=== PATIENT | male | born 1950 | race Caucasian/White ===

== ENCOUNTER 2018-06-02 13:10 | Emergency (ER) | payer MEDICARE, OTHER ==
[~2018-06-02 13:10] MED LIST: Sodium Chloride Irrig Solution 250 ML BOT ONE
[2018-06-02] MEDS ORDERED: Lidocaine 1% 20 ML MDV ONE (13:26)
[2018-06-02] MEDS ORDERED: Triple Antibiotic Oint 1 GM Packet ONE (13:26)
== END 2018-06-02 13:45 | disposition home or self-care (01) ==
LOC: MADERS 13:10
DX: S61.411A Laceration without foreign body of right hand, initial encounter (principal); F43.10 Post-traumatic stress disorder, unspecified; F17.210 Nicotine dependence, cigarettes, uncomplicated; Z79.899 Other long term (current) drug therapy; W26.0XXA Contact with knife, initial encounter
CPT/HCPCS: 12001; J2001

== ENCOUNTER 2019-05-25 16:59 | Emergency (ER) | payer MEDICARE, OTHER ==
[2019-05-25] MEDS ORDERED: Lidocaine 1% 20 ML MDV ONE (17:24)
== END 2019-05-25 17:55 | disposition home or self-care (01) ==
LOC: MADERS 16:59
DX: S61.213A Laceration without foreign body of left middle finger without damage to nail, initial encounter (principal); F43.10 Post-traumatic stress disorder, unspecified; F17.210 Nicotine dependence, cigarettes, uncomplicated; Z79.899 Other long term (current) drug therapy; Z79.82 Long term (current) use of aspirin; W23.0XXA Caught, crushed, jammed, or pinched between moving objects, initial encounter
CPT/HCPCS: 12001; J2001

== ENCOUNTER 2019-07-14 11:23 | Emergency (ER) | payer MEDICARE, OTHER ==
[2019-07-14] MEDS ORDERED: Lidocaine 1% 20 ML MDV ONE (12:32)
[2019-07-14] MEDS ORDERED: Bacitracin 1 PK ONE (13:24)
== END 2019-07-14 13:27 | disposition home or self-care (01) ==
LOC: MADERS 11:23
DX: S61.012A Laceration without foreign body of left thumb without damage to nail, initial encounter (principal); F43.10 Post-traumatic stress disorder, unspecified; F17.210 Nicotine dependence, cigarettes, uncomplicated; W26.0XXA Contact with knife, initial encounter; Y92.009 Unspecified place in unspecified non-institutional (private) residence as the place of occurrence of the external cause
CPT/HCPCS: 12001; J2001